=== PATIENT | female | born 1985 | race Caucasian/White ===

== ENCOUNTER 2018-07-13 22:50 | Outpatient (CLI) | payer MEDICAID ==
[2018-07-13] MEDS ORDERED: LACTATED RINGER'S 1,000 ML IV (23:00)
[2018-07-13] MEDS: LACTATED RINGER'S 1,000 ML IV (23:11)
[2018-07-13 23:19] LABS: ADD MAN DIFF? NO
[2018-07-13 23:31] LABS: WHITE BLOOD COUNT 10.6 10^3/ul (4.8-10.8)
[2018-07-13 23:31] LABS: BASOPHILS % 0.3 % (0.0-2.0); EOSINOPHILS # 0.1 10^3/ul (0.0-0.5); EOSINOPHILS % 1.3 % (0.0-7.0); HEMATOCRIT 35.3 % (37.0-47.0); HEMOGLOBIN 12.3 g/dl (12.0-16.0); LYMPHOCYTES # 2.3 10^3/ul (0.8-2.9); LYMPHOCYTES % 21.8 % (15.0-51.0); MEAN CORPUSCULAR HEMOGLOBIN 31.3 pg (29.0-33.0); MEAN CORPUSCULAR HGB CONC 34.8 g/dl (32.0-37.0); MEAN CORPUSCULAR VOLUME 89.8 fl (82.0-101.0); MEAN PLATELET VOLUME 10.4 fl (7.4-10.4); MONOCYTE # 0.6 10^3/ul (0.3-0.9); MONOCYTES % 5.9 % (0.0-11.0); NEUTROPHIL # 7.4 10^3/ul (1.6-7.5); NEUTROPHILS % 69.9 % (39.0-77.0); PLATELET COUNT 262 10^3/UL (140-415); RED BLOOD COUNT 3.93 10^6/ul (4.20-5.40); RED CELL DISTRIBUTION WIDTH 12.4 % (11.5-14.5)
[2018-07-13 23:50] LABS: INR 0.88; PARTIAL THROMBOPLASTIN TIME 25.2 Sec (23.0-35.0); PT RATIO 0.9
[2018-07-13 23:53] LABS: ALANINE AMINOTRANSFERASE 14 IU/L (13-69); ALBUMIN 3.8 g/dl (3.3-4.9); ALBUMIN/GLOBULIN RATIO 1.08; ALKALINE PHOSPHATASE 74 IU/L (42-121); ANION GAP 15 (5-13); ASPARTATE AMINO TRANSFERASE 19 IU/L (15-46); BLOOD UREA NITROGEN 6 mg/dl (7-20); CALCIUM 9.4 mg/dl (8.4-10.2); CARBON DIOXIDE 20 mmol/L (21-31); CHLORIDE 105 mmol/L (97-110); CREATININE 0.47 mg/dl (0.44-1.00); Estimated GFR > 60 mL/min (>60); GLUCOSE 92 mg/dl (70-220); POTASSIUM 3.6 mmol/L (3.5-5.1); SODIUM 140 mmol/L (135-144); TOTAL PROTEIN 7.3 g/dl (6.1-8.1); URIC ACID 4.7 mg/dl (3.1-7.9)
[2018-07-14] MEDS: ACETAMINOPHEN 1000MG/100ML IV 100 ML IVPB (00:23)
[2018-07-14] MEDS: LACTATED RINGER'S 1,000 ML IV (00:24)
[2018-07-14] MEDS ORDERED: DIPHENHYDRAMINE 25 MG CAP PO (02:30)
== END 2018-07-14 08:57 | disposition home or self-care (01) ==
LOC: OBT 07-14 08:57 → L-D 22:54
DX: O26.892 Other specified pregnancy related conditions, second trimester (principal); R55 Syncope and collapse; Z3A.25 25 weeks gestation of pregnancy
CPT/HCPCS: 36415; 80053; 84560; 85025; 85610; 85730; 96360; 96361

== ENCOUNTER 2018-10-08 21:20 | Outpatient (CLI) | payer MEDICAID ==
[2018-10-08] MEDS: TERBUTALINE 1 MG/ML INJ SC (23:10)
[2018-10-08 23:26] LABS: ADD UMIC YES; UR ASCORBIC ACID NEGATIVE (NEGATIVE); UR BILIRUBIN (Dip) NEGATIVE (NEGATIVE); UR BLOOD (Dip) NEGATIVE (NEGATIVE); UR CLARITY SLIGHTLY CLOUDY (CLEAR); UR COLOR YELLOW (YELLOW); UR GLUCOSE (Dip) NEGATIVE (NEGATIVE); UR KETONES (Dip) NEGATIVE (NEGATIVE); UR LEUKOCYTE ESTERASE (Dip) TRACE Leu/ul (NEGATIVE); UR MUCUS FEW /HPF (NONE SEEN); UR NITRITE (Dip) NEGATIVE (NEGATIVE); UR RBC 0 /HPF (0-5); UR SPECIFIC GRAVITY (Dip) 1.006 (1.003-1.030); UR SQUAMOUS EPITHELIAL CELL FEW /HPF (FEW); UR TOTAL PROTEIN (Dip) NEGATIVE (NEGATIVE); UR UROBILINOGEN (Dip) NEGATIVE (NEGATIVE); UR WBC 3 /HPF (0-5)
[2018-10-09 01:23] LABS: ALANINE AMINOTRANSFERASE 10 IU/L (13-69); ALBUMIN 3.8 g/dl (3.3-4.9); ALBUMIN/GLOBULIN RATIO 1.15; ALKALINE PHOSPHATASE 161 IU/L (42-121); ANION GAP 10 (5-13); ASPARTATE AMINO TRANSFERASE 19 IU/L (15-46); BILIRUBIN,INDIRECT 0.2 mg/dl (0-1.1); BILIRUBIN,TOTAL 0.2 mg/dl (0.2-1.3); BLOOD UREA NITROGEN 5 mg/dl (7-20); CALCIUM 9.3 mg/dl (8.4-10.2); CARBON DIOXIDE 20 mmol/L (21-31); CHLORIDE 107 mmol/L (97-110); Estimated GFR > 60 mL/min (>60); GLUCOSE 98 mg/dl (70-220); POTASSIUM 3.7 mmol/L (3.5-5.1); SODIUM 137 mmol/L (135-144); TOTAL PROTEIN 7.1 g/dl (6.1-8.1)
== END 2018-10-09 00:45 | disposition home or self-care (01) ==
LOC: OBT 21:20 → L-D 21:21
DX: O62.9 Abnormality of forces of labor, unspecified (principal); Z3A.38 38 weeks gestation of pregnancy
CPT/HCPCS: 80053; 81001; 96372

== ENCOUNTER 2018-10-15 08:02 | Inpatient (IN) | payer MEDICAID ==
[~2018-10-15 08:02] MED LIST: OXYTOCIN 30 UNITS/LR 500 ML BAG IV
[2018-10-15] MEDS ORDERED: CARBOPROST 250 MCG INJ IM ×2 (09:30→18:30)
[2018-10-15] MEDS ORDERED: METHYLERGONOVINE 0.2 MG INJ IM ×2 (09:30→18:30)
[2018-10-15] MEDS ORDERED: OXYTOCIN 30 UNITS/LR 500 ML IV ×2 (09:30→18:30)
[2018-10-15] MEDS ORDERED: MISOPROSTOL 200 MCG TAB PR ×2 (09:30→18:30)
[2018-10-15 09:38] LABS: ADD MAN DIFF? NO
[2018-10-15] MEDS: LACTATED RINGER'S 1,000 ML IV ×2 (09:38→15:33)
[2018-10-15 09:40] LABS: WHITE BLOOD COUNT 7.9 10^3/ul (4.8-10.8)
[2018-10-15 09:40] LABS: BASOPHILS % 0.3 % (0.0-2.0); EOSINOPHILS # 0.1 10^3/ul (0.0-0.5); EOSINOPHILS % 1.3 % (0.0-7.0); HEMATOCRIT 40.6 % (37.0-47.0); HEMOGLOBIN 13.8 g/dl (12.0-16.0); LYMPHOCYTES # 1.7 10^3/ul (0.8-2.9); LYMPHOCYTES % 20.9 % (15.0-51.0); MEAN CORPUSCULAR HEMOGLOBIN 30.9 pg (29.0-33.0); MEAN CORPUSCULAR VOLUME 90.8 fl (82.0-101.0); MEAN PLATELET VOLUME 11.4 fl (7.4-10.4); MONOCYTE # 0.6 10^3/ul (0.3-0.9); MONOCYTES % 7.1 % (0.0-11.0); NEUTROPHIL # 5.5 10^3/ul (1.6-7.5); NEUTROPHILS % 69.9 % (39.0-77.0); PLATELET COUNT 226 10^3/UL (140-415); RED BLOOD COUNT 4.47 10^6/ul (4.20-5.40); RED CELL DISTRIBUTION WIDTH 12.9 % (11.5-14.5)
[2018-10-15 09:46] LABS: PARTIAL THROMBOPLASTIN TIME 25.4 Sec (23.0-35.0); PROTIME 12.3 Sec (11.9-14.9)
[2018-10-15] MEDS ORDERED: CEFAZOLIN 2 GM/50 ML (PMX) 50 ML IVPB (10:30)
[2018-10-15 12:17] LABS: HEPATITIS B SURFACE ANTIGEN NEGATIVE (NEGATIVE)
[2018-10-15] MEDS ORDERED: OXYTOCIN 10 UNIT INJ (13:55)
[2018-10-15] MEDS ORDERED: morphine SULFATE/PF (10 MG/10 ML) INJ (13:55)
[2018-10-15] MEDS ORDERED: PHENYLephrine (100 MCG/ML) 10ML SYG ×2 (13:55→14:45)
[2018-10-15] MEDS: CITRIC ACID/NA CITRATE 30 ML CUP PO (13:59)
[2018-10-15] MEDS: ONDANSETRON 4 MG INJ IV (13:59)
[2018-10-15] MEDS ORDERED: KETOROLAC 30 MG INJ (14:38)
[2018-10-15] MEDS ORDERED: DEXAMETHASONE 4 MG/ML 1 ML INJ (14:38)
[2018-10-15] MEDS ORDERED: METOCLOPRAMIDE 10 MG INJ (14:38)
[2018-10-15] MEDS ORDERED: ONDANSETRON 4 MG INJ (14:38)
[2018-10-15] MEDS ORDERED: EPHEDrine SULFATE 50 MG/5 ML SYG (14:45)
[2018-10-15] MEDS ORDERED: NALBUPHINE HCL (10 MG/1 ML) INJ IV (15:00)
[2018-10-15] MEDS ORDERED: ACETAMINOPHEN 500 MG TAB PO (15:00)
[2018-10-15] MEDS ORDERED: HYDROmorphONE 0.5 MG/0.5 ML SYG IV ×2 (15:00)
[2018-10-15] MEDS ORDERED: HYDROCODONE/APAP (5/325) TAB PO (15:00)
[2018-10-15] MEDS ORDERED: DIPHENHYDRAMINE 50 MG INJ IV (15:00)
[2018-10-15] MEDS ORDERED: morphine 2 MG INJ IV ×2 (15:00)
[2018-10-15] MEDS ORDERED: NALOXONE (0.4 MG/ML) INJ IV (15:00)
[2018-10-15] MEDS ORDERED: ONDANSETRON 4 MG INJ IV (15:00)
[2018-10-15] MEDS: OXYTOCIN 30 UNITS/LR 500 ML IV ×2 (15:13→18:30)
[2018-10-15] MEDS ORDERED: NA PHOSPHATE/BIPHOS 133 ML ENEMA PR (18:30)
[2018-10-15] MEDS ORDERED: NACL 0.9% 3 ML SYG IV (18:30)
[2018-10-15 20:02] LABS: RAPID PLASMA REAGIN NONREACTIVE (NR)
[2018-10-15] MEDS: IBUPROFEN 800 MG TAB PO (22:00)
[2018-10-16] MEDS: LACTATED RINGER'S 1,000 ML IV (01:37)
[2018-10-16] MEDS: IBUPROFEN 800 MG TAB PO ×3 (06:00→22:12)
[2018-10-16] MEDS: KETOROLAC 30 MG INJ IV (08:32)
[2018-10-16 08:37] LABS: ADD MAN DIFF? NO
[2018-10-16 08:40] LABS: BASOPHILS % 0.2 % (0.0-2.0); EOSINOPHILS % 0.3 % (0.0-7.0); HEMATOCRIT 31.8 % (37.0-47.0); HEMOGLOBIN 10.9 g/dl (12.0-16.0); LYMPHOCYTES # 2.2 10^3/ul (0.8-2.9); LYMPHOCYTES % 19.6 % (15.0-51.0); MEAN CORPUSCULAR HEMOGLOBIN 30.9 pg (29.0-33.0); MEAN CORPUSCULAR HGB CONC 34.3 g/dl (32.0-37.0); MEAN CORPUSCULAR VOLUME 90.1 fl (82.0-101.0); MEAN PLATELET VOLUME 11.4 fl (7.4-10.4); MONOCYTE # 0.8 10^3/ul (0.3-0.9); MONOCYTES % 7.1 % (0.0-11.0); NEUTROPHILS % 72.1 % (39.0-77.0); PLATELET COUNT 201 10^3/UL (140-415); RED BLOOD COUNT 3.53 10^6/ul (4.20-5.40)
[2018-10-16 08:40] LABS: WHITE BLOOD COUNT 11.1 10^3/ul (4.8-10.8)
[2018-10-16] MEDS: LANOLIN HPA 1 PKT TOP (22:12)
[2018-10-17] MEDS: IBUPROFEN 800 MG TAB PO ×3 (05:17→23:19)
[2018-10-17] MEDS: HYDROCODONE/APAP (5/325) TAB PO (20:26)
[2018-10-18] MEDS: IBUPROFEN 800 MG TAB PO (06:00)
[2018-10-18] MEDS: MEASLES,MUMPS,RUBELLA VACCINE INJ SC* (09:00)
[2018-10-18] MEDS: DIPHTH/TET/ACEL PERTUSS (ADULT) 0.5 ML VIAL IM* (11:16)
== END 2018-10-18 13:14 | disposition home or self-care (01) | DRG 788 ==
LOC: L-D 08:02 → PP1 18:25
PROVIDERS: Obstetrics & Gynecology
PROC: 10D00Z1 Extraction of Products of Conception, Low, Open Approach (ICD-10-PCS; principal; 2018-10-15 12:30)
DX: O34.219 Maternal care for unspecified type scar from previous cesarean delivery (principal); G89.18 Other acute postprocedural pain; O90.81 Anemia of the puerperium; Z3A.38 38 weeks gestation of pregnancy; Z37.0 Single live birth; Z23 Encounter for immunization
CPT/HCPCS: 85025; 85610; 85730; 86592; 86850; 86900; 86901; 87340; 90715; 99464